=== PATIENT | female | born 1980 | race Caucasian/White ===

== ENCOUNTER 2023-11-18 15:27 | Inpatient (IN) | payer OTHER ==
[2023-11-18 16:01] VITALS: BMI 29.8
[2023-11-18] MEDS ORDERED: hydrALAZINE 20 MG/ML VIAL SLOW IVP PRN ×2 (16:11)
[2023-11-18] MEDS ORDERED: Calcium Gluc 4.6 MEQ/10 ML (100 MG/ML) SLOW IVP PRN (16:11)
[2023-11-18] MEDS ORDERED: Labetalol HCl 100 MG/20 ML VIAL SLOW IVP PRN ×2 (16:11)
[2023-11-18] MEDS ORDERED: Ondansetron PF 4 MG/2 ML Vial IVP PRN (16:11)
[2023-11-18] MEDS ORDERED: Lorazepam 2 MG/ML VIAL SLOW IVP PRN (16:11)
[2023-11-18] MEDS ORDERED: Promethazine HCl 25 MG/ML VIAL IM PRN (16:11)
[2023-11-18] MEDS ORDERED: Lactated Ringer's 1,000 ML IV SCH (16:15)
[2023-11-18] MEDS ORDERED: Labetalol HCl 100 MG/20 ML VIAL ONE (16:19)
[2023-11-18] MEDS: Labetalol HCl 100 MG/20 ML VIAL SLOW IVP PRN (16:20)
[2023-11-18] MEDS: Magnesium Sulfate 20 gm/500 ml 20 GM/500 ML BAG IVPB SCH (16:25)
[2023-11-18 16:45] VITALS: BP 154/98
[2023-11-18] MEDS: Betamet Acet/Betamet Na Ph 30 MG/5 ML VIAL IM SCH (17:00)
[2023-11-18] MEDS ORDERED: hydrOXYzine 25 MG TAB PO PRN (17:10)
[2023-11-18 17:51] LABS: Hematocrit 35.5 % (34.9-44.5); Hemoglobin 12.3 g/dL (12.0-15.5); Mean Corpuscular HGB CONC 34.6 g/dL (32.0-36.0); Mean Corpuscular Hemoglobin 29.4 pg (27.0-33.0); Mean Corpuscular Volume 84.9 fl (81.6-98.3); Mean Platelet Volume 11.1 fl (7.4-10.4); Platelet Count 146 10x3/uL (150-450); RBC Distribution Width 14.6 % (11.5-14.5); Red Blood Cell (RBC) Count 4.18 10x6/uL (3.90-5.03); White Blood Cell (WBC) Count 6.6 10x3/uL (3.5-10.5)
[2023-11-18 17:52] LABS: Creatinine, Urine Less than 20.00 mg/dL (47-110); Protein, Urine Random Quant Less than 10 mg/dL (1-14)
[2023-11-18 17:54] LABS: ALT (SGPT) 15 U/L (8-55); AST (SGOT) 16 U/L (5-34); Albumin 3.8 g/dL (3.5-5.0); Alkaline Phosphatase 90 U/L (40-110); Anion Gap 18 mmol/L (10-20); BUN (Urea Nitrogen) 8 mg/dL (7.0-18.7); Bilirubin, Total 0.4 mg/dL (0.2-1.2); Calc. Creatinine Clearance 176 mL/min (70-130); Carbon Dioxide 14 mmol/L (22-29); Chloride 108 mmol/L (98-107); Estimated GFR 119; Globulin 2.7 g/dL (2.4-3.5); Glucose 85 mg/dL (70-105); Potassium 3.8 mmol/L (3.5-5.1); Protein, Total 6.5 g/dL (6.0-8.3); Sodium 136 mmol/L (136-145)
[2023-11-18 18:13] LABS: HBSAg Index 0.21 S/CO (0-0.99); Hep B Surf Ag - L&D Non-Reactive S/CO (NonReactive)
[2023-11-18 18:14] LABS: Syphilis Antibody Nonreactive (Nonreactive); Syphilis Antibody Index 0.05 S/CO (<1.00 Non-Reactive)
[2023-11-18] MEDS: hydrOXYzine 25 MG TAB PO SCH (18:17)
[2023-11-18] MEDS ORDERED: NIFEdipine XL 30 MG ER.TAB PO SCH (18:30)
[2023-11-18] MEDS: busPIRone HCl 5 MG TAB PO SCH (21:28)
[2023-11-19] MEDS ORDERED: Levothyroxine Sodium 25 MCG TAB PO SCH (08:00)
[2023-11-19] MEDS ORDERED: Prenatal Vitamin 1 TAB PO SCH (09:00)
[2023-11-19] MEDS ORDERED: Aspirin 81 mg Enteric Coated Tablet PO SCH (09:00)
[2023-11-19] MEDS ORDERED: NIFEdipine XL 90 MG ER.TAB PO SCH (09:00)
[2023-11-19] MEDS: NIFEdipine XL 60 MG ER.TAB PO SCH (09:40)
[2023-11-19] MEDS: Levothyroxine Sodium 25 MCG TAB PO SCH (09:40)
[2023-11-19] MEDS: Magnesium Sulfate 20 gm/500 ml 20 GM/500 ML BAG ONE (10:09)
[2023-11-19] MEDS ORDERED: Sertraline 100 MG TAB PO SCH (12:00)
[2023-11-20] MEDS ORDERED: Sertraline 100 MG TAB PO SCH (09:00)
== END 2023-11-19 17:45 | disposition home health service (06) | DRG 833 ==
LOC: CSHLD/OP 15:27 → CSHLD 17:17
PROVIDERS: ADMIT Student in an Organized Health Care Education/Training Program; ATTEND Student in an Organized Health Care Education/Training Program
DX: O14.13 Severe pre-eclampsia, third trimester (principal); O99.343 Other mental disorders complicating pregnancy, third trimester; Z3A.30 30 weeks gestation of pregnancy
CPT/HCPCS: 36415; 51702; 80053; 82570; 84156; 85027; 86780; 86850; 86900; 86901; 87340; 99285; J0702; J3475

== ENCOUNTER 2023-11-21 15:21 | Day surgery (SDC) | payer OTHER ==
[2023-11-21 15:44] VITALS: BMI 29.8
[2023-11-21] MEDS ORDERED: hydrALAZINE 20 MG/ML VIAL SLOW IVP PRN (16:18)
[2023-11-21] MEDS ORDERED: Labetalol HCl 100 MG/20 ML VIAL SLOW IVP PRN ×3 (16:18)
[2023-11-21] MEDS: hydrALAZINE 20 MG/ML VIAL ONE (16:21)
[2023-11-21 16:29] VITALS: BP 160/89
[2023-11-21 17:03] LABS: #Monocytes 0.7 10x3/uL (0.0-1.1); #Neutrophils 6.3 10x3/uL (1.5-8.4); %Basophils 0.1 % (0.0-2.0); %Eosinophils 0.2 % (0.0-6.0); %Lymphocytes 15.2 % (18.0-47.0); %Monocytes 8.6 % (0.0-10.0); %Neutrophils 75.1 % (40.0-75.0); Hematocrit 33.9 % (34.9-44.5); Hemoglobin 11.9 g/dL (12.0-15.5); Mean Corpuscular HGB CONC 35.1 g/dL (32.0-36.0); Mean Corpuscular Hemoglobin 29.4 pg (27.0-33.0); Mean Corpuscular Volume 83.7 fl (81.6-98.3); Mean Platelet Volume 10.9 fl (7.4-10.4); Platelet Count 161 10x3/uL (150-450); RBC Distribution Width 14.4 % (11.5-14.5); Red Blood Cell (RBC) Count 4.05 10x6/uL (3.90-5.03); White Blood Cell (WBC) Count 8.4 10x3/uL (3.5-10.5)
[2023-11-21 17:15] LABS: ALT (SGPT) 14 U/L (8-55); AST (SGOT) 14 U/L (5-34); Albumin 3.6 g/dL (3.5-5.0); Alkaline Phosphatase 82 U/L (40-110); Anion Gap 16 mmol/L (10-20); BUN (Urea Nitrogen) 9 mg/dL (7.0-18.7); Bilirubin, Total 0.4 mg/dL (0.2-1.2); Calc. Creatinine Clearance 179 mL/min (70-130); Calcium 8.3 mg/dL (7.8-10.44); Carbon Dioxide 16 mmol/L (22-29); Chloride 108 mmol/L (98-107); Estimated GFR 119; Globulin 2.5 g/dL (2.4-3.5); Glucose 78 mg/dL (70-105); Potassium 3.3 mmol/L (3.5-5.1); Protein, Total 6.1 g/dL (6.0-8.3); Sodium 137 mmol/L (136-145)
[2023-11-21] MEDS: hydrALAZINE 20 MG/ML VIAL SLOW IVP SCH (18:16)
[2023-11-21] MEDS: Labetalol HCl 200 MG TAB PO SCH (18:16)
== END 2023-11-21 22:10 | disposition home or self-care (01) ==
LOC: CSHLD/OP 15:21
PROVIDERS: ATTEND Student in an Organized Health Care Education/Training Program
DX: O14.13 Severe pre-eclampsia, third trimester (principal); O99.343 Other mental disorders complicating pregnancy, third trimester; F32.A Depression, unspecified; F41.9 Anxiety disorder, unspecified; O24.410 Gestational diabetes mellitus in pregnancy, diet controlled; O99.283 Endocrine, nutritional and metabolic diseases complicating pregnancy, third trimester; E03.9 Hypothyroidism, unspecified; O09.523 Supervision of elderly multigravida, third trimester; Z3A.30 30 weeks gestation of pregnancy; Z98.890 Other specified postprocedural states; Z79.899 Other long term (current) drug therapy
CPT/HCPCS: 80053; 82570; 84156; 85025; 96374; 99284; J0360